=== PATIENT | male | born 1965 | race Caucasian/White ===

== ENCOUNTER 2017-01-23 23:31 | Inpatient (IN) | payer OTHER, MEDICAID ==
[~2017-01-23] VITALS: Ht 175.3 cm; Wt 96.6 kg
[2017-01-24] MEDS ORDERED: SODIUM CHLORIDE 0.9% 500 ML IV ONE (00:15)
[2017-01-24 00:41] LABS: BASOPHILS % 0.5 % (0.0-2.0); EOSINOPHILS % 3.1 % (0.0-5.0); HEMATOCRIT. 26.8 % (42.0-52.0); HEMOGLOBIN. 9.5 g/dL (14.0-18.0); MEAN CORPUSCULAR HEMOGLOBIN 39.5 pg (28.0-32.0); MEAN CORPUSCULAR VOLUME 111.2 fL (80.0-94.0); MONOCYTES % 13.9 % (2.0-8.0); NEUTROPHILS % 74.5 % (40.0-76.0); RED BLOOD CELL COUNT 2.41 mill/uL (4.7-6.1); RED CELL DISTRIBUTION WIDTH 18.2 % (11.6-14.6)
[2017-01-24 00:46] LABS: CHLORIDE 91 mEq/L (98-107)
[2017-01-24 00:48] LABS: INR 1.7; PROTHROMBIN TIME 17.2 sec (9.4-11.6)
[2017-01-24 00:55] LABS: CARBON DIOXIDE 24 mEq/L (21-32); ETHANOL BLOOD < 10 mg/dL
[2017-01-24] MEDS ORDERED: KETOROLAC 30MG/ML VIAL IV ONE (02:00)
[2017-01-24 06:26] VITALS: BP 104/45
[2017-01-24] MEDS ORDERED: SODIUM (06:46)
[2017-01-24] MEDS ORDERED: OMEPRAZOLE (06:46)
[2017-01-24] MEDS ORDERED: FUROSEMIDE (06:46)
[2017-01-24] MEDS ORDERED: SPIRONOLACTONE (06:46)
[2017-01-24] MEDS ORDERED: LACTULOSE (06:46)
[2017-01-24] MEDS ORDERED: GABAPENTIN (06:46)
[2017-01-24 08:00] VITALS: BP 88/46
[2017-01-24] MEDS ORDERED: PHYTONADIONE 10MG/ML AMP SUBCUT NR (10:30)
[2017-01-24 12:00] VITALS: BP 84/49
[2017-01-24 13:00] LABS: BASOPHILS % 0.4 % (0.0-2.0); EOSINOPHILS % 3.3 % (0.0-5.0); HEMATOCRIT. 24.5 % (42.0-52.0); HEMOGLOBIN. 8.7 g/dL (14.0-18.0); LYMPHOCYTES % 10.8 % (20.0-50.0); MEAN CORPUSCULAR HEMOGLOBIN 39.6 pg (28.0-32.0); MEAN CORPUSCULAR VOLUME 111.5 fL (80.0-94.0); MONOCYTES % 12.8 % (2.0-8.0); NEUTROPHILS % 72.7 % (40.0-76.0); RED BLOOD CELL COUNT 2.19 mill/uL (4.7-6.1); RED CELL DISTRIBUTION WIDTH 17.8 % (11.6-14.6)
[2017-01-24 13:01] LABS: INR 1.7; PROTHROMBIN TIME 17.4 sec (9.4-11.6)
[2017-01-24 13:51] LABS: MEAN PLATELET VOLUME 9.4 fl (7.4-10.4)
[2017-01-24 13:53] LABS: PLATELET 89 x1000/uL (130-400)
[2017-01-24 16:00] VITALS: BP 96/53
[2017-01-24] MEDS ORDERED: ACETAMINOPHEN 650MG SUPP PR PRN (18:00)
[2017-01-24] MEDS ORDERED: DIPHENHYDRAMINE 50MG/ML VIAL IV PRN (18:00)
[2017-01-24] MEDS ORDERED: GUAIFENESIN 200MG/10ML SUGAR FREE UDC PO PRN (18:00)
[2017-01-24] MEDS ORDERED: DOCUSATE SODIUM 100MG CAPSULE PO PRN (18:00)
[2017-01-24] MEDS ORDERED: IPRATROPIUM/ALBUTEROL 0.5-3(2.5)MG/3ML NEB INH PRN (18:00)
[2017-01-24] MEDS ORDERED: ACETAMINOPHEN 325MG TABLET PO PRN (18:00)
[2017-01-24] MEDS ORDERED: MAGNESIUM/ALUMINUM HYDROXIDE/SIMETHICONE 30ML UDC PO PRN (18:00)
[2017-01-24] MEDS ORDERED: ONDANSETRON HCL 4MG/2ML VIAL IV PRN (18:00)
[2017-01-24] MEDS ORDERED: ACETAMINOPHEN 650MG/20.3ML UDC GT PRN (18:00)
[2017-01-24] MEDS ORDERED: NA PHOS,M-B/NA PHOS,DI-BA ENEMA 118ML PR PRN (18:00)
[2017-01-24] MEDS ORDERED: CLONIDINE 0.1MG TABLET PO PRN (18:00)
[2017-01-24 20:00] VITALS: BP 100/49
[2017-01-24] MEDS: HYDROCODONE/ACETAMINOPHEN 5/325MG TABLET PO PRN (21:48)
[2017-01-24] MEDS: SODIUM CHLORIDE 0.9% INJ 3ML FLUSH IVF SCH (21:48)
[2017-01-25] VITALS (9 sets, daily range): BP systolic 94–108; BP diastolic 48–76
[2017-01-25] MEDS: HYDROCODONE/ACETAMINOPHEN 5/325MG TABLET PO PRN (02:45)
[2017-01-25 06:40] LABS: HEMATOCRIT. 24.9 % (42.0-52.0); HEMOGLOBIN. 8.9 g/dL (14.0-18.0); MEAN CORPUSCULAR VOLUME 112.1 fL (80.0-94.0); MEAN PLATELET VOLUME 8.8 fl (7.4-10.4); PLATELET 102 x1000/uL (130-400); RED BLOOD CELL COUNT 2.22 mill/uL (4.7-6.1); RED CELL DISTRIBUTION WIDTH 17.9 % (11.6-14.6)
[2017-01-25 06:56] LABS: INR 1.5; PROTHROMBIN TIME 15.7 sec (9.4-11.6)
[2017-01-25] MEDS: SODIUM CHLORIDE 0.9% INJ 3ML FLUSH IVF SCH ×2 (06:59→15:52)
[2017-01-25 07:03] LABS: CARBON DIOXIDE 24 mEq/L (21-32); CHLORIDE 92 mEq/L (98-107); HDL CHOLESTEROL 13 mg/dL (40-59); LDL CHOLESTEROL 49 mg/dL (5-100)
[2017-01-25] MEDS ORDERED: SODIUM BICARBONATE 4% (2.4MEQ) 5ML VIAL IV ONE (09:29)
[2017-01-25] MEDS ORDERED: LIDOCAINE HCL 1% 20ML VIAL (Pyxis) INJ ONE (09:29)
[2017-01-25 10:40] LABS: PLATELET ESTIMATE DECREASED
== END 2017-01-25 21:21 | disposition home or self-care (01) ==
LOC: ER 23:31 → 5WST 01-24 03:14 → ENRESERV 01-24 03:48
PROVIDERS: ADMIT Family Medicine; ATTEND Family Medicine
PROC: 0W9G3ZZ Drainage of Peritoneal Cavity, Percutaneous Approach (ICD-10-PCS; principal; 2017-01-25)
DX: K74.60 Unspecified cirrhosis of liver (principal); E43 Unspecified severe protein-calorie malnutrition; D61.818 Other pancytopenia; D68.9 Coagulation defect, unspecified; R18.8 Other ascites; C22.9 Malignant neoplasm of liver, not specified as primary or secondary; I11.0 Hypertensive heart disease with heart failure; I50.9 Heart failure, unspecified; E46 Unspecified protein-calorie malnutrition; K76.6 Portal hypertension; E87.1 Hypo-osmolality and hyponatremia; D53.9 Nutritional anemia, unspecified; D63.8 Anemia in other chronic diseases classified elsewhere; F10.21 Alcohol dependence, in remission; K80.20 Calculus of gallbladder without cholecystitis without obstruction; R16.1 Splenomegaly, not elsewhere classified; R59.0 Localized enlarged lymph nodes
CPT/HCPCS: 36415; 49083; 74176; 80048; 80053; 80061; 82040; 82105; 83690; 85025; 85384; 85610; 85730; 86850; 86900; 86945; 87040; 87070; 87086; 87205; 88108; 88312; 89050; 96361; 96374; 99285; G0482; J1885; J3430; J3490; J7040; J7050; P9034